=== PATIENT | male | born 1975 | race Caucasian/White ===

== ENCOUNTER → 2021-04-28 00:27 | Outpatient (CLI) | payer OTHER, SELFPAY ==
[2021-04-28 11:48] LABS: Influenza Control Positive
[2021-04-30 20:05] LABS: SARS-CoV-2 RNA PCR Negative
== END ==
PROVIDERS: PCP Family Medicine; Visit Provider Physician Assistant
DX: R50.9 Fever, unspecified (principal); R05.9 Cough, unspecified; R68.89 Other general symptoms and signs; Z20.822 Contact with and (suspected) exposure to COVID-19
CPT/HCPCS: 87804; C9803; U0003; U0005

== ENCOUNTER → 2021-11-07 10:00 | Outpatient (CLI) | payer OTHER, SELFPAY ==
--- NOTE | ~2021-11-07 | XR_ITS ---
EXAMINATION: XR chest 2V 11/07/2021 13:19 INDICATION: Chest pain PROCEDURE: 2 view chest COMPARISON: 02/19/2016 FINDINGS: The lungs are clear. The cardiomediastinal silhouette is within normal limits. There are no pleural effusions. There is no pneumothorax suspected. IMPRESSION: 1: NO ACUTE CARDIOPULMONARY DISEASE. Reviewed, dictated and finalized at location A.
== END ==
PROVIDERS: PCP Family Medicine; Visit Provider Family Medicine
DX: R07.9 Chest pain, unspecified (principal)
CPT/HCPCS: 71046

== ENCOUNTER → 2022-06-13 17:02 | Outpatient (CLI) | payer OTHER, SELFPAY ==
--- NOTE | ~2022-06-13 | XR_ITS ---
EXAMINATION: XR lumbar spine 2-3V DATE: 06/13/2022 17:15 INDICATION: Sciatica, unspecified side. TECHNIQUE: 3 views of lumbar spine were obtained. COMPARISON: None. FINDINGS: There is 5 degrees dextrocurvature of thoracolumbar spine. Vertebral body heights are reid l. There is mildly decreased disc height at L3-L4, moderately decreased disc height at L4-L5, and sev erely decreased disc height at L5-S1. There is moderate lumbar facet joint osteoarthritis in lower delia mbar spine. IMPRESSION: 1. Severe lower lumbar spondylosis. Reviewed, dictated and finalized at location A. [employer]
== END ==
PROVIDERS: PCP Family Medicine; Visit Provider Family Medicine
DX: M54.30 Sciatica, unspecified side (principal); M47.816 Spondylosis without myelopathy or radiculopathy, lumbar region
CPT/HCPCS: 72100

== ENCOUNTER 2024-04-07 15:29 | Emergency (ER) | payer OTHER, SELFPAY ==
[2024-04-07 15:36] VITALS: BP 140/78; PULSE 77; RESP 20; TEMP 36.7; O2SAT 99
--- NOTE | 2024-04-07 15:36 | ED_ITS ---
HPI - Ear Problem General Chief complaint: Ear Stated complaint: Right Ear Irritation Time Seen by Provider: 04/07/24 15:37 Source: patient Mode of arrival: ambulatory Limitations: no limitations History of Present Illness HPI Narrative: Chencho is a 49-year-old male patient presenting to the clinic today with complaints of right ear pain x4 days. He reports he is having ear pain and feels as though his ears clogged. He has been trying ear drops and suction to his ear. Now has pain to the outer ear. Denies any drainage. No fever or chills. Related Data Allergies Allergy/AdvReac Type Severity Reaction Status Date / Time No Known Allergies Allergy Verified 04/07/24 15:37 Review of Systems Review of Systems: Pertinent positives per HPI. Patient denies any fever, chills, rash, headache, visual changes, dizziness, cough, runny nose, sore throat, shortness of breath, chest pain, palpitations, nausea, vomiting, diarrhea, constipation, abdominal pain, or any urinary issues. [facility] Surgical History Surgical History Status post colectomy Social History Social History Years smoked: 20 Smoking status: Current some day smoker Tobacco type: cigarettes Second hand tobacco smoke exposure: No Smoking end date: 05/12/15 Alcohol intake: current Drinks per week: 3 Substance use: never Substance use type: does not use Living arrangements: with family Occupation/Education: occupation Gender identity (if verbalized by the patient): Male Sexual Orientation (if Verbalized by the Patient): Straight or Heterosexual Comments At the time of my signature, I reviewed and agree with the nursing past medical, surgical, social, and family history. There is no relevant family history pertinent to the patient complaint. Exam Narrative: General: Well-developed, well nourished, in no apparent distress Head: Normocephalic, atraumatic Eyes: Pupils equally round and reactive to light bilaterally, EOM intact, sclera and conjunctive clear, no discharge, lids normal Ears: Left TMs intact and clear, left ear canal clear, no drainage, right TM intact, bulging, red, right ear canal red and swollen with bloody appearance, tenderness to palpation over the tragus and pulling of the pinna of the right ear, grossly hearing normal. Nose: Nares patent, no discharge, no inflammation, no sinus tenderness. Mouth: Oropharynx without lesions or masses, good dentition, MMM. Neck: Supple, trachea midline, no enlargement of anterior or posterior cervical nodes, no thyroid masses or goiter palpable. Cardio: Regular rate and rhythm, s1 and s2 normal, no murmur appreciated. Resp: Clear to auscultation bilaterally anteriorly and posteriorly, no rhonchi, rales, wheezing or rubs Course Course Emergency Course: Portions of this record may have been created with voice recognition software. Level of Care: Express Care Visit Vital Signs Vital signs: Vital signs reviewed Medical Decision Making MDM Narrative Medical decision making narrative: At the time of visit patient is resting comfortably on the exam table. Patient appears to be nontoxic. Plan: I suspect patient has otitis externa and otitis media. Prescription for amoxicillin and ofloxacin ear drops was sent to the pharmacy. Supportive measures were discussed with the patient and they voiced understanding discharge instructions and agrees to treatment plan. Return precautions reviewed Differential Diagnosis Differential Diagnosis: Otitis media, otitis sternum eustachian tube dysfunction, cerumen impaction, upper respiratory infection, serous otitis Discharge Plan Discharge Clinical Impression: Acute right otitis media Otitis externa Qualifiers: Otitis externa type: unspecified type Chronicity: acute Laterality: right Qualified Code(s): H60.501 - Unspecified acute noninfective otitis externa, right ear Patient Disposition: Home, Self-Care Condition: Stable Instructions: Antibiotic Form, Swimmer's Ear (ED), Ear Infection (ED) Additional Instructions: Take any prescribed medications only as directed-amoxicillin and ofloxacin ear drops Tylenol/motrin as needed for pain May use Flonase and [id number] antihistamine to help with pressure behind ear May use heating pad to alleviate pain If you get recurrent ear infections it may be warranted to follow up with ENT. Follow up with your PCP in 3-5 days if symptoms persist. Prescriptions: New ofloxacin 0.3 % drops 5 drp otic (ear) BID 7 Days Qty: 5 0RF amoxicillin 875 mg tablet 875 mg PO Q12H 7 Days Qty: 14 0RF Follow-up/Referrals: Galindo Schaffer MD [Primary Care Provider] - Time of Disposition: 15:51 Quality NIHSS Nursing Documentation ED NIHSS nursing documentation: reviewed/agree
== END 2024-04-07 16:00 | disposition home or self-care (01) ==
PROVIDERS: Emergency Provider Nurse Practitioner Family; PCP Family Medicine
DX: H66.91 Otitis media, unspecified, right ear (principal); H60.501 Unspecified acute noninfective otitis externa, right ear; Z87.891 Personal history of nicotine dependence
CPT/HCPCS: 99213; G0463

== ENCOUNTER 2024-12-14 07:56 | Outpatient (CLI) | payer BC, SELFPAY ==
--- NOTE | ~2024-12-14 | XR_ITS ---
CHEST RADIOGRAPH, PA AND LATERAL CLINICAL HISTORY: R07.9 - Chest pain, unspecified . COMPARISON: 11/07/2021 TECHNIQUE: PA and lateral views of the chest. FINDINGS The cardiomediastinal silhouette is unremarkable. The lungs are clear. IMPRESSION: No focal infiltrate or effusion. Reviewed, dictated and finalized at location A.
== END 2024-12-14 07:57 | disposition home or self-care (01) ==
PROVIDERS: PCP Family Medicine; Visit Provider Family Medicine
DX: R07.9 Chest pain, unspecified (principal)
CPT/HCPCS: 71046